=== PATIENT | male | born 1995 | race Two or more races ===

== ENCOUNTER 2018-04-04 19:07 | Emergency (ER) | payer SELFPAY ==
[~2018-04-04] VITALS: Ht 175.3 cm; Wt 68.9 kg
[2018-04-04 21:40] VITALS: BP 141/83
[2018-04-04] MEDS ORDERED: BACITRACIN TOP OINT 1 UD PKG TOP ONE (22:00)
[2018-04-04] MEDS ORDERED: LIDOCAINE 1% HCL (LOCAL ANESTH.) INJ 20ML MDV IJ ONE (22:00)
== END 2018-04-05 00:16 | disposition home or self-care (01) ==
LOC: ER 19:07
DX: S61.211A Laceration without foreign body of left index finger without damage to nail, initial encounter (principal); W26.0XXA Contact with knife, initial encounter; Y93.89 Activity, other specified; Y99.8 Other external cause status; Y92.89 Other specified places as the place of occurrence of the external cause
CPT/HCPCS: 12042; 99284; J2001; 12041

== ENCOUNTER 2020-11-14 21:51 | Emergency (ER) | payer MEDICAID, OTHER ==
[~2020-11-14] VITALS: Ht 177.8 cm; Wt 81.6 kg
[2020-11-14 22:07] VITALS: BP 162/71
== END 2020-11-14 22:35 | disposition left against medical advice (07) ==
LOC: EDBD 21:51 → ER 21:54
DX: M79.632 Pain in left forearm (principal); Z53.21 Procedure and treatment not carried out due to patient leaving prior to being seen by health care provider

== ENCOUNTER 2022-07-17 22:33 | Emergency (ER) | payer MEDICAID | END 2022-07-18 02:14 | disposition left against medical advice (07) | LOC: ER 22:34 | DX: R06.02 Shortness of breath (principal); Z53.21 Procedure and treatment not carried out due to patient leaving prior to being seen by health care provider ==

== ENCOUNTER 2023-03-05 09:05 | Emergency (ER) | payer MEDICAID ==
[~2023-03-05] VITALS: Ht 172.7 cm; Wt 82.0 kg
[2023-03-05] MEDS ORDERED: SODIUM CHLORIDE 0.9% 1,000 ML IVB ONE (09:15)
[2023-03-05] MEDS ORDERED: SODIUM CHLORIDE 0.9% 1,000 ML IV ONE (09:15)
[2023-03-05] MEDS ORDERED: cefTRIAXone 1GM/50ML D5W 50 ML IV ONE (09:15)
[2023-03-05 09:35] LABS: Basophils # (auto) 0.1 10 ^3/uL (0-0.2); Eosinophils # (auto) 0.1 10 ^3/uL (0-0.8); Eosinophils % (auto) 1.3 % (0.0-7.0); Hematocrit 42.2 % (41.0-53.0); Hemoglobin 14.5 g/dL (13.5-17.5); Lymphocytes # (auto) 1.9 10 ^3/uL (0.4-5.4); Lymphocytes % (auto) 27.9 % (10.0-50.0); Mean Corpuscular Hemoglobin 29.9 pg (28.0-32.0); Mean Corpuscular Hgb Conc. 34.3 g/dL (32.0-36.0); Mean Corpuscular Volume 87.1 fL (80.0-100.0); Monocytes # (auto) 0.5 10 ^3/uL (0-1.3); Neutrophils # (auto) 4.3 10 ^3/uL (1.6-8.6); Neutrophils % (auto) 62.8 % (37.0-80.0); Nucleated Red Blood Cells % 0.1 %; Red Blood Cells 4.84 10^6/uL (4.5-5.90); Red Cell Distribution Width 14.3 % (11.8-14.3); White Blood Cell 6.9 10^3/uL (4.4-10.8)
[2023-03-05 09:54] LABS: Albumin 4.2 g/dL (3.4-5.0); Anion Gap 3 (5-15); Blood Alcohol < 3.0 mg/dL (0-5); Blood Urea Nitrogen 11 mg/dL (7-18); Calcium 8.6 mg/dL (8.5-10.1); Carbon Dioxide 26 mmol/L (21-32); Chloride 108 mmol/L (98-107); Glucose 129 mg/dL (74-106); Potassium 3.9 mmol/L (3.5-5.1); Sodium 137 mmol/L (136-145)
[2023-03-05 09:58] LABS: Alanine Aminotransferase 27 U/L (16-61); Alkaline Phosphatase 82 U/L (45-117); Aspartate Aminotransferase 20 U/L (15-37); Bilirubin, Total 0.4 mg/dL (0.2-1.0); GFR African American 129 mL/min; GFR Non-African American 107 mL/min; Total Protein 7.6 g/dL (6.4-8.2)
[2023-03-05 10:15] VITALS: BP 136/91
== END 2023-03-05 11:52 | disposition left against medical advice (07) ==
LOC: ER 09:05 → EDBD 09:05 → ER 10:43
DX: S01.01XA Laceration without foreign body of scalp, initial encounter (principal); Y04.0XXA Assault by unarmed brawl or fight, initial encounter; Y93.89 Activity, other specified; Y92.89 Other specified places as the place of occurrence of the external cause; Y99.8 Other external cause status
CPT/HCPCS: 36415; 70450; 71045; 80053; 80320; 85025; 96365; 99285; J0696; J7030